=== PATIENT | female | born 1985 | race Hispanic/Latino ===

== ENCOUNTER → 2016-09-21 | Outpatient (REF) | payer OTHER ==
[~2016-09-21] MED LIST: ASPI1TAB PO; ASPI81TA85 PO; COLA50CA3 PO; IBUP80TA PO; PERC5TAB PO; PERC7.5T12 PO; PHEN25IN3; PNV-TAB2 PO
[2016-09-21 16:13] LABS: FREE T4 1.3 NG/DL (0.76-1.46)
== END ==
LOC: M LABDRAW1 15:32
PROVIDERS: ATTEND Physician Assistant Medical
DX: E89.0 Postprocedural hypothyroidism (principal)

== ENCOUNTER → 2017-09-09 | Outpatient (CLI) | payer OTHER ==
[2017-09-09 11:31] LABS: FREE T4 1.26 NG/DL (0.76-1.46)
== END ==
LOC: M LAB 10:23
DX: E89.0 Postprocedural hypothyroidism (principal)

== ENCOUNTER → 2017-10-23 | Outpatient (REF) | payer OTHER | LOC: M SFHCLERA 10:19 | DX: J02.9 Acute pharyngitis, unspecified (principal) ==